=== PATIENT | male | born 1950 | race Caucasian/White ===

== ENCOUNTER 2020-04-01 14:43 | Emergency (ER) | payer MEDICARE, BC ==
[2020-04-01] MEDS ORDERED: Bacitracin Oint 1 GM U/D Packet TOP ONE (15:17)
[2020-04-01] MEDS ORDERED: Lidocaine 1% 30 ML SDV INJECT ONE (15:17)
[2020-04-01] MEDS ORDERED: Diphtheria,Pertussis(Acell),Tetanus Vaccine 0.5 ML SDV IM ONE (15:18)
[2020-04-01 15:27] VITALS: BP 139/83; PULSE 84
--- NOTE | 2020-04-01 15:59 | EDM.PDOC ---
Scribed by Prerna Wild 04/01/20 0779 for Horace Nowak MD ED HPI GENERAL MEDICAL PROBLEM - General Chief Complaint: Laceration Stated Complaint: LEFT HAND LACERATION Time Seen by Provider: 04/01/20 15:18 Source of Information: Reports: Patient, RN, RN Notes Reviewed History Limitations: Reports: No Limitations - History of Present Illness INITIAL COMMENTS - FREE TEXT/NARRATIVE: Patient presents to the ER by POV stating that he got his left hand smashed with a forklift and cut the back of the hand. Denies any other injury. Last tetanus was greater than 7 years ago. Onset: Today Location: Reports: Upper Extremity, Left Quality: Reports: Ache Improves with: Reports: None Worsens with: Reports: None Associated Symptoms: Reports: No Other Symptoms - Related Data Allergies Allergy/AdvReac Type Severity Reaction Status Date / Time No Known Allergies Allergy Verified 04/05/19 11:03 Home Meds: Home Meds Dextroamphetamine/Amphetamine [Adderall Xr 30 mg Capsule] 30 mg PO BIDMEALS 09/05/16 [History] Pregabalin [Lyrica] 200 mg PO TID 09/05/16 [History] ARIPiprazole [Aripiprazole] 10 mg PO QAM 09/06/16 [History] lamoTRIgine [Lamictal] 100 mg PO BEDTIME 09/06/16 [History] DULoxetine [Cymbalta] 60 mg PO DAILY 04/05/19 [History] Tamsulosin HCl [Flomax] 0.4 mg PO DAILY 04/05/19 [History] traZODone HCl [Trazodone HCl] 25 - 50 mg PO BEDTIME PRN 04/05/19 [History] Past Medical History - Past Health History Medical/Surgical History: Denies Medical/Surgical History HEENT History: Reports: Hard of Hearing, Impaired Vision, Other (See Below) Other HEENT History: sinus surgery Cardiovascular History: Reports: High Cholesterol, Hypertension Genitourinary History: Reports: BPH, Chronic Renal Insuffiency, Prostate Disorder Musculoskeletal History: Reports: Osteoarthritis, Other (See Below) Other Musculoskeletal History: right wrist/thumb bone fusion Psychiatric History: Reports: Anxiety, Bipolar, Depression Oncologic (Cancer) History: Reports: Other (See Below) Other Oncologic History: Skin Cancer Dermatologic History: Reports: Cellulitis - Past Surgical History Musculoskeletal Surgical History: Reports: Hip Replacement, Knee Replacement Dermatological Surgical History: Reports: Skin Biopsy Social & Family History - Family History Family Medical History: Noncontributory Cardiac: Reports: Blood Clots/VTE/DVT, High Cholesterol, Hypertension Musculoskeletal: Reports: Osteoarthritis Hematologic: Reports: Other (See Below) Oncologic: Reports: Brain - Caffeine Use Caffeine Use: Reports: Coffee, Soda - Living Situation & Occupation Living situation: Reports: , with Family Occupation: Other Review of Systems - Review of Systems Review Of Systems: Comprehensive ROS is negative, except as noted in HPI. ED EXAM, GENERAL - Physical Exam Exam: See Below Exam Limited By: No Limitations General Appearance: Alert, WD/WN, No Apparent Distress Respiratory/Chest: No Respiratory Distress Cardiovascular: Normal Peripheral Pulses Extremities: Normal Range of Motion, Normal Capillary Refill, Other (4cm total l inear laceration to depth of subcutaneous fat at dorsum of left hand overlying 2nd and 3rd MCPJs with no FB, no tendon injury, and no active bleeding.). No: Joint Swelling Neurological: Alert, Oriented, No Motor/Sensory Deficits Psychiatric: Normal Mood Skin Exam: Warm, Dry ED TRAUMA EXTREMITY PROCEDURES - Laceration/Wound Repair Left Dorsal Hand Lac/Wound Length In cm: 4 Appearance: Subcutaneous, Linear, Clean Distal NVT: Neuro & Vascular Intact, No Tendon Injury Anesthetic Type: Local Local Anesthesia - Lidocaine (Xylocaine): 1% Plain Local Anesthetic Volume: Other (15) Skin Prep: Chlorhexidine (Hibiciens), Saline, Sterile Drape Saline Irrigation (cc's): 1,000 Exploration/Debridement/Repair: Wound Explored, In a Bloodless Field, Explored to Base, Minimal Debridement, Minimally Undermined Closed With: Sutures Suture Size: 3-0 # of Sutures: 12 Suture Type: Nylon, Interrupted Drain Placement: No Sterile Dressing Applied: Nurse Tetanus Status Addressed: Yes Complications: No Course - Vital Signs Last Recorded V/S: Last Vital Signs Temp Pulse 84 04/01/20 15:25 Resp 14 04/01/20 15:25 BP 139/83 04/01/20 15:25 Pulse Ox 93 L 04/01/20 15:25 - Orders/Labs/Meds Orders: Active Orders 24 hr Category Date Time Status Vaccines to be Administered [RC] PER UNIT ROUTINE Care 04/01/20 15:18 Active Meds: Medications Discontinued Medications Generic Name Dose Route Start Last Admin Trade Name Desean PRN Reason Stop Dose Admin Bacitracin 1 dose 04/01/20 15:17 04/01/20 15:22 Bacitracin Oint 1 Gm TOP 04/01/20 15:18 1 dose ONETIME ONE Administration Diphtheria/Tetanus/Acell Pertussis 0.5 ml 04/01/20 15:18 04/01/20 15:22 Adacel IM 04/01/20 15:19 0.5 ml .ONCE ONE Administration Lidocaine HCl 30 ml 04/01/20 15:17 04/01/20 15:22 Xylocaine-Mpf 1% INJECT 04/01/20 15:18 30 ml ONETIME ONE Administration Departure - Departure Time of Disposition: 15:57 Disposition: Home, Self-Care 01 Condition: Good Clinical Impression: Laceration of left hand without complication, excluding fingers Qualifiers: Encounter type: initial encounter Qualified Code(s): S61.412A - Laceration without foreign body of left hand, initial encounter - Discharge Information *PRESCRIPTION DRUG MONITORING PROGRAM REVIEWED*: Not Applicable *COPY OF PRESCRIPTION DRUG MONITORING REPORT IN PATIENT ONI: Not Applicable Instructions: Sutured Wound Care Forms: ED Department Discharge Additional Instructions: Rx: Cephalexin 500mg Follow for suture removal in 7 to 10 days. Return to ER if any signs of wound infection develop. Sepsis Event Note (ED) - Focused Exam Vital Signs: Vital Signs Pulse Resp BP Pulse Ox 04/01/20 15:25 84 14 139/83 93 L - My Orders Last 24 Hours: My Active Orders 04/01/20 15:18 Vaccines to be Administered [RC] PER UNIT ROUTINE - Assessment/Plan Last 24 Hours: My Active Orders 04/01/20 15:18 Vaccines to be Administered [RC] PER UNIT ROUTINE I have read and agree with the documentation that has been completed regarding this visit. By signing this record, I attest that the documentation was completed in my physical presence and is an accurate record of the encounter.
== END 2020-04-01 16:05 | disposition home or self-care (01) ==
LOC: DL.ED 14:43
DX: S61.412A Laceration without foreign body of left hand, initial encounter (principal); I12.9 Hypertensive chronic kidney disease with stage 1 through stage 4 chronic kidney disease, or unspecified chronic kidney disease; N18.9 Chronic kidney disease, unspecified; N40.0 Benign prostatic hyperplasia without lower urinary tract symptoms; F41.9 Anxiety disorder, unspecified; F31.9 Bipolar disorder, unspecified; Z23 Encounter for immunization; Z79.899 Other long term (current) drug therapy; W23.0XXA Caught, crushed, jammed, or pinched between moving objects, initial encounter
CPT/HCPCS: 12002; 90471; 90715; 99282; J2001

== ENCOUNTER 2021-01-21 12:53 | Emergency (ER) | payer MEDICARE, BC ==
[2021-01-21 13:12] VITALS: BP 143/69; PULSE 88
--- NOTE | 2021-01-21 14:06 | CR ---
PROCEDURE INFORMATION: Exam: XR Left Ankle Exam date and time: 01/21/2021 1:10 PM Age: 70 years old Clinical indication: Other: Pain; Additional info: Fall TECHNIQUE: Imaging protocol: XR Left ankle. Views: 3 or more views. COMPARISON: No relevant prior studies available. FINDINGS: Bones/joints: There is anatomic alignment. No acute fracture or dislocation. Small calcific densities lateral and inferior to the medial malleolus and inferior to telateral malleolus. The mortise is preserved. No deformity of the talar dome. Small minute plantar spur. Soft tissues: Diffuse soft tissue swelling. IMPRESSION: 1. No acute osseous abnormality. 2. Moderate ankle edema.
--- NOTE | 2021-01-21 14:09 | CR ---
PROCEDURE INFORMATION: Exam: XR Left Knee Exam date and time: 01/21/2021 1:16 PM Age: 70 years old Clinical indication: Other: Pain; Additional info: Fall TECHNIQUE: Imaging protocol: XR Left knee. Views: 3 views. COMPARISON: No relevant prior studies available. FINDINGS: Bones/joints: There is anatomic alignment. Age-related bone density. Tricompartmental joint space narrowing is identified. There is lateral tibiofemoral and infrapatellar osteophytosis. No acute fracture or dislocation. Suprapatellar joint effusion. Soft tissues: Normal. IMPRESSION: 1. No acute osseous abnormality. 2. Tricompartmental osteoarthritis. 3. Suprapatellar joint effusion.
[2021-01-21 14:10] LABS: ANION GAP 8.7 mEq/L (7-13)
--- NOTE | 2021-01-21 14:18 | CR ---
PROCEDURE INFORMATION: Exam: XR Left Wrist Exam date and time: 01/21/2021 1:19 PM Age: 70 years old Clinical indication: Other: Pain; Additional info: Fall TECHNIQUE: Imaging protocol: XR Left wrist. Views: 1 or 2 views. COMPARISON: No relevant prior studies available. FINDINGS: Bones/joints: There is severe 1st carpometacarpal degenerative disease. Distortion in the region of the overlapping trapezium and trapezoid may represent site of prior trauma or postsurgical intervention. There is a ulnar positive variance. Degenerative small cysts distal ulna. No acute fracture or dislocation. Proximal and distal carpal rows are preserved. Soft tissues: Normal. IMPRESSION: 1. No acute osseous abnormality. 2. Advanced 1st carpometacarpal. 3. Ulnar positive variance.
--- NOTE | 2021-01-21 15:31 | EDM.PDOC ---
Scribed by Prerna Wild 01/21/21 2852 for Evette Sethi NP ED HPI GENERAL MEDICAL PROBLEM - General Chief Complaint: Lower Extremity Injury/Pain Stated Complaint: FALL/ANKLE,WRIST,KNEE PAIN Time Seen by Provider: 01/21/21 13:00 Source of Information: Reports: Patient, RN, RN Notes Reviewed History Limitations: Reports: No Limitations - History of Present Illness INITIAL COMMENTS - FREE TEXT/NARRATIVE: Patient is a 70-year-old male who presents to ER with complaint of left wrist pain, left knee and left ankle pain. Patient states he fell down 5 steps. [id number] witnessed and states he fell hard on left knee. Denies hitting head or getting knocked out. Patient states pain okay when sitting still. When moving around, pain is excruciating. Onset: Sudden Onset Date: 01/20/21 Location: Reports: Lower Extremity, Left Quality: Reports: Ache Severity: Moderate Improves with: Reports: None Worsens with: Reports: None Associated Symptoms: Reports: No Other Symptoms Left Leg Pain Score (Numeric/FACES): 6 - Related Data Allergies Allergy/AdvReac Type Severity Reaction Status Date / Time No Known Allergies Allergy Verified 01/21/21 13:14 Home Meds: Home Meds Dextroamphetamine/Amphetamine [Adderall Xr 30 mg Capsule] 30 mg PO BIDMEALS 09/05/16 [History] ARIPiprazole [Aripiprazole] 10 mg PO QAM 09/06/16 [History] lamoTRIgine [Lamictal] 100 mg PO BEDTIME 09/06/16 [History] DULoxetine [Cymbalta] 60 mg PO DAILY 04/05/19 [History] Tamsulosin HCl [Flomax] 0.4 mg PO DAILY 04/05/19 [History] Past Medical History - Past Health History Medical/Surgical History: Denies Medical/Surgical History HEENT History: Reports: Hard of Hearing, Impaired Vision, Other (See Below) Other HEENT History: sinus surgery Cardiovascular History: Reports: High Cholesterol, Hypertension Genitourinary History: Reports: BPH, Chronic Renal Insuffiency, Prostate Disorder Musculoskeletal History: Reports: Osteoarthritis, Other (See Below) Other Musculoskeletal History: right wrist/thumb bone fusion Psychiatric History: Reports: Anxiety, Bipolar, Depression Oncologic (Cancer) History: Reports: Other (See Below) Other Oncologic History: Skin Cancer Dermatologic History: Reports: Cellulitis - Past Surgical History Cardiovascular Surgical History: Reports: None Male Surgical History: Reports: None Musculoskeletal Surgical History: Reports: Hip Replacement, Knee Replacement Oncologic Surgical History: Reports: None Dermatological Surgical History: Reports: Skin Biopsy Social & Family History - Family History Family Medical History: No Pertinent Family History Cardiac: Reports: Blood Clots/VTE/DVT, High Cholesterol, Hypertension Musculoskeletal: Reports: Osteoarthritis Hematologic: Reports: Other (See Below) Oncologic: Reports: Brain - Tobacco Use Tobacco Use Status *Q: Current Every Day Tobacco User Years of Tobacco use: 50 Packs/Tins Daily: 0.5 - Caffeine Use Caffeine Use: Reports: Coffee, Soda - Recreational Drug Use Recreational Drug Use: No - Living Situation & Occupation Living situation: Reports: , with Family Occupation: Other Review of Systems - Review of Systems Review Of Systems: Comprehensive ROS is negative, except as noted in HPI. ED EXAM, GENERAL - Physical Exam Exam: See Below Exam Limited By: No Limitations General Appearance: Alert, WD/WN, No Apparent Distress Eye Exam: Bilateral Eye: EOMI, Normal Inspection, PERRL Ears: Normal External Exam, Normal Canal, Hearing Grossly Normal, Normal TMs Nose: Normal Inspection, Normal Mucosa, No Blood Throat/Mouth: Normal Inspection, Normal Lips, Normal Teeth, Normal Gums, Normal Oropharynx, Normal Voice, No Airway Compromise Head: Atraumatic, Normocephalic Neck: Normal Inspection, Supple, Non-Tender, Full Range of Motion Respiratory/Chest: No Respiratory Distress, Lungs Clear, Normal Breath Sounds, No Accessory Muscle Use, Chest Non-Tender Cardiovascular: Bradycardia GI/Abdominal: Normal Bowel Sounds, Soft, Non-Tender, No Organomegaly, No Distention, No Abnormal Bruit, No Mass (Male) Exam: Deferred Rectal (Males) Exam: Deferred Back Exam: Normal Inspection, Full Range of Motion, NT Extremities: Other (decreased range ofmotion to left wrist and left leg. ) Neurological: Alert, Oriented, CN II-XII Intact, Normal Cognition, Normal Gait, Normal Reflexes, No Motor/Sensory Deficits Psychiatric: Normal Affect, Normal Mood Skin Exam: Other (dark colored lower extremities. History of cellulitis. ) ED TRAUMA EXTREMITY PROCEDURES - Splinting Left Upper Extremity Splint Site: left wrist Pre-Procedure NV Status: Normal Post-Procedure NV Status: Normal Splint Material: Velcro Splint Design: Volar Applied & Form Fitted By: Nurse Provider Post-Splint Application NV Check: NV Status Normal, Good Position Complications: No #1 Interpretation EKG Date: 01/21/21 Time: 13:36 Rhythm: Other (sinus or ectopic atrial rhythm) Rate (Beats/Min): 82 [place]: Normal P-Wave: Present QRS: Normal ST-T: Normal QT: Normal Course - Vital Signs Last Recorded V/S: Last Vital Signs Temp 98.2 F 01/21/21 13:11 Pulse 88 01/21/21 13:11 Resp 16 01/21/21 13:11 BP 143/69 H 01/21/21 13:11 Pulse Ox 95 01/21/21 13:11 - Orders/Labs/Meds Labs: Laboratory Tests 01/21/21 01/21/21 Range/Units 13:44 13:44 WBC 7.6 (5.0-10.0) 10^3/uL RBC 4.89 (4.6-6.2) 10^6/uL Hgb 14.2 (14.0-18.0) g/dL Hct 42.7 (40.0-54.0) % MCV 87.3 (80-100) fL MCH 29.0 (27.0-34.0) pg MCHC 33.3 (33.0-35.0) g/dL Plt Count 171 (150-450) 10^3/uL Neut % (Auto) 59.5 (42.2-75.2) % Lymph % (Auto) 29.9 (20.5-50.1) % [place] % (Auto) 8.7 H (2-8) % Eos % (Auto) 1.4 (1.0-3.0) % Baso % (Auto) 0.5 (0.0-1.0) % Sodium 141 (136-145) mmol/L Potassium 3.7 (3.5-5.1) mmol/L Chloride 105 (98-107) mmol/L Carbon Dioxide 31 (21-32) mmol/L Anion Gap 8.7 (7-13) mEq/L BUN 29 H (7-18) mg/dL Creatinine 1.78 H (0.70-1.30) mg/dL Est Cr Clr Drug Dosing 46.81 mL/min Estimated GFR (MDRD) 38 BUN/Creatinine Ratio 16.3 (No establ ref range) Glucose 94 (70-99) mg/dL Calcium 8.3 L (8.5-10.1) mg/dL Total Bilirubin 0.7 (0.2-1.0) mg/dL AST 20 (15-37) U/L ALT 30 (16-63) U/L Alkaline Phosphatase 73 (46-116) U/L C-Reactive Protein 3.8 H (0.0-0.9) mg/dL Total Protein 6.7 (6.4-8.2) g/dL Albumin 3.1 L (3.4-5.0) g/dL Globulin 3.6 Albumin/Globulin Ratio 0.86 - Radiology Interpretation Free Text/Narrative:: Left Ankle xray: PROCEDURE INFORMATION: Exam: XR Left Ankle Exam date and time: 01/21/2021 1:10 PM Age: 70 years old Clinical indication: Other: Pain; Additional info: Fall TECHNIQUE: Imaging protocol: XR Left ankle. Views: 3 or more views. COMPARISON: No relevant prior studies available. FINDINGS: Bones/joints: There is anatomic alignment. No acute fracture or dislocation. Small calcific densities lateral and inferior to the medial malleolus and inferior to telateral malleolus. The mortise is preserved. No deformity of the talar dome. Small minute plantar spur. Soft tissues: Diffuse soft tissue swelling. IMPRESSION: 1. No acute osseous abnormality. 2. Moderate ankle edema. Thank you for allowing us to participate in the care of your patient. Dictated and Authenticated by: Neva Robbins MD 01/21/2021 2:05 PM Central Time ([place] & [place]) Left knee xray: PROCEDURE INFORMATION: Exam: XR Left Knee Exam date and time: 01/21/2021 1:16 PM Age: 70 years old Clinical indication: Other: Pain; Additional info: Fall TECHNIQUE: Imaging protocol: XR Left knee. Views: 3 views. COMPARISON: No relevant prior studies available. FINDINGS: Bones/joints: There is anatomic alignment. Age-related bone density. Tricompartmental joint space narrowing is identified. There is lateral tibiofemoral and infrapatellar osteophytosis. No acute fracture or dislocation. Suprapatellar joint effusion. Soft tissues: Normal. IMPRESSION: 1. No acute osseous abnormality. 2. Tricompartmental osteoarthritis. 3. Suprapatellar joint effusion. Thank you for allowing us to participate in the care of your patient. Dictated and Authenticated by: Neva Robbins MD 01/21/2021 2:09 PM Central Time ([place] & [place]) Left wrist xray: PROCEDURE INFORMATION: Exam: XR Left Wrist Exam date and time: 01/21/2021 1:19 PM Age: 70 years old Clinical indication: Other: Pain; Additional info: Fall TECHNIQUE: Imaging protocol: XR Left wrist. Views: 1 or 2 views. COMPARISON: No relevant prior studies available. FINDINGS: Bones/joints: There is severe 1st carpometacarpal degenerative disease. Distorti on in the region of the overlapping trapezium and trapezoid may represent site of prior trauma or postsurgical intervention. There is a ulnar positive variance. Degenerative small cysts distal ulna. No acute fracture or dislocation. Proximal and distal carpal rows are preserved. Soft tissues: Normal. IMPRESSION: 1. No acute osseous abnormality. 2. Advanced 1st carpometacarpal. 3. Ulnar positive variance. Thank you for allowing us to participate in the care of your patient. 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 Wrist sprain Qualifiers: Encounter type: initial encounter Laterality: left Qualified Code(s): S63.502A - Unspecified sprain of left wrist, initial encounter Left ankle sprain Qualifiers: Encounter type: initial encounter Involved ligament of ankle: unspecified ligament Qualified Code(s): S93.402A - Sprain of unspecified ligament of left ankle, initial encounter Left knee sprain Qualifiers: Encounter type: initial encounter Involved ligament of knee: unspecified ligament Qualified Code(s): S83.92XA - Sprain of unspecified site of left knee, initial encounter - Discharge Information *PRESCRIPTION DRUG MONITORING PROGRAM REVIEWED*: No *COPY OF PRESCRIPTION DRUG MONITORING REPORT IN PATIENT ONI: No Instructions: Ankle Sprain, [id number], Knee Sprain, Adult, [id number], Muscle Strain, [id number], Wrist Sprain With [facility] Forms: ED Department Discharge Additional Instructions: Elevate and ice the areas as tolerated May use Tylenol as directed for pain Follow-up with your primary care provider Listen to your [id number] Sepsis Event Note (ED) - Evaluation Sepsis Screening Result: No Definite Risk - Focused Exam Vital Signs: Vital Signs Temp Pulse Resp BP Pulse Ox 01/21/21 13:11 98.2 F 88 16 143/69 H 95 I have read and agree with the documentation that has been completed regarding this visit. By signing this record, I attest that the documentation was completed in my physical presence and is an accurate record of the encounter.
== END 2021-01-21 14:44 | disposition home or self-care (01) ==
LOC: DL.ED 12:53
DX: S63.502A Unspecified sprain of left wrist, initial encounter (principal); S93.402A Sprain of unspecified ligament of left ankle, initial encounter; S83.92XA Sprain of unspecified site of left knee, initial encounter; Q74.0 Other congenital malformations of upper limb(s), including shoulder girdle; Z72.0 Tobacco use; E78.00 Pure hypercholesterolemia, unspecified; I12.9 Hypertensive chronic kidney disease with stage 1 through stage 4 chronic kidney disease, or unspecified chronic kidney disease; N18.9 Chronic kidney disease, unspecified; Z79.899 Other long term (current) drug therapy; W10.9XXA Fall (on) (from) unspecified stairs and steps, initial encounter
CPT/HCPCS: 36415; 73100-LT; 73562-LT; 73610-LT; 80053; 85025; 86140; 93005; 93010; 99284; 99284-25

== ENCOUNTER 2022-11-01 16:59 | Emergency (ER) | payer MEDICARE, BC ==
[2022-11-01 17:17] VITALS: BP 155/96; PULSE 86
== END 2022-11-01 17:21 | disposition home or self-care (01) ==
LOC: DL.ED 16:59
DX: R04.0 Epistaxis (principal); E78.00 Pure hypercholesterolemia, unspecified; I12.9 Hypertensive chronic kidney disease with stage 1 through stage 4 chronic kidney disease, or unspecified chronic kidney disease; N18.9 Chronic kidney disease, unspecified; Z79.899 Other long term (current) drug therapy
CPT/HCPCS: 99282; 99283

== ENCOUNTER 2024-05-12 21:59 | Emergency (ER) | payer MEDICARE, BC ==
[2024-05-12 22:21] VITALS: BP 188/134; PULSE 90
[2024-05-12] MEDS: diphenhydrAMINE 50 MG/ML SDV IVPUSH ONE (22:35)
[2024-05-12] MEDS: Sodium Chloride 0.9% 1,000 ML IV ONE (22:35)
[2024-05-12] MEDS: Famotidine 20 MG/2 ML SDV IVPUSH ONE (22:38)
[2024-05-12] MEDS: methylPREDNISolone Sodium Succinate 125 MG/2 ML SDV IVPUSH ONE (22:41)
[2024-05-12] MEDS: Sodium Chloride 0.9% 10 ML Syringe FLUSH PRN (22:46)
== END 2024-05-12 23:46 | disposition home or self-care (01) ==
LOC: DL.ED 21:59
DX: L25.9 Unspecified contact dermatitis, unspecified cause (principal); I10 Essential (primary) hypertension; E78.00 Pure hypercholesterolemia, unspecified; Z79.899 Other long term (current) drug therapy; Z79.01 Long term (current) use of anticoagulants
CPT/HCPCS: 96361; 96374; 96375; 99282; 99284; J1200; J2919; J3490; J7030